=== PATIENT | male | born 1980 | race Caucasian/White ===

== ENCOUNTER 2017-06-21 18:02 | Emergency (ER) | payer MEDICAID ==
[2017-06-21 18:32] VITALS: RESP 18; TEMP 98.1
--- NOTE | 2017-06-21 19:28 | EDPHY ---
H & P Stated Complaint: Pleuritic type R sided CP~1mo; worse today after cough;recent URI Time Seen by Provider: 06/21/17 19:28 - Personal History Current Tetanus Diphtheria and Acellular Pertussis (TDAP): Yes Tetanus Vaccine Date: <10YRS - Medical/Surgical History Hx Asthma: No Hx Chronic Respiratory Disease: No Hx Diabetes: No Hx Cardiac Disease: No Hx Renal Disease: No Hx Cirrhosis: No Hx Alcoholism: No Hx HIV/AIDS: No Hx Splenectomy or Spleen Trauma: No Other PMH: denies - Social History Smoking Status: Current every day smoker Constitutional: Initial Vital Signs Temperature (C) 36.7 C 06/21/17 18:20 Heart Rate 94 06/21/17 18:20 Respiratory Rate 18 06/21/17 18:20 Blood Pressure 108/72 06/21/17 18:20 O2 Sat (%) 95 06/21/17 18:20 O2 Delivery Mode Room Air Allergies/Adverse Reactions: No Known Allergies Allergy (Verified 06/21/17 18:29) Home Medications: Medication Instructions Recorded Ibuprofen [Motrin] 800 mg PO Q8 #20 tab 06/21/17 oxyCODONE IR [Oxycodone Ir (*)] 5 - 10 mg PO Q6 PRN #20 tab 06/21/17 Medical Decision Making - Diagnostics Imaging Results: Imaging Impressions Chest X-Ray 06/21/17 18:33 Impression: Findings consistent with airways disease are noted. Imaging: I viewed and interpreted images myself ED Course/Re-evaluation: CHIEF COMPLAINT: Rib pain HISTORY OF PRESENT ILLNESS: The patient is a 37 y/o male complaining of rib pain that began acutely after a coughing fit today. He has been coughing frequently over the last few days and was diagnosed with a URI. After a heavy coughing fit today, he felt a "pop" along his right lower anterior ribs and felt sudden pain at the site. He now has pain with inhalation and is splinting each breath. He denies fever, nausea, diaphoresis, lightheadedness, palpitations , vomiting, abdominal pain, or other symptoms. No cardiac disease history. REVIEW OF SYSTEMS: A 10 point review of systems was performed and is negative with the exception of the elements mentioned in the history of present illness. PHYSICAL EXAM: HR, BP, O2 Sat, RR. Temp noted General Appearance: Alert, well hydrated, appropriate, and non-toxic appearing. Appears uncomfortable. Head: Atraumatic without scalp tenderness or obvious injury Eyes: Pupils equal, round, reactive to light and accommodation, EOMI, no trauma , no injection. Throat: Mucus membranes moist. Neck: Supple Respiratory: No retractions, no distress, no wheezes, and no accessory muscle use. Lungs are clear to auscultation bilaterally. Cardiovascular: Regular rate and rhythm, no murmurs, rubs, or gallops. Good capillary refill all extremities. Gastrointestinal: Abdomen is soft, nontender, non-distended, no masses, no rebound, no guarding, no peritoneal signs. Musculoskeletal: Normal active ROM of all extremities, atraumatic. Tenderness over right anterior lower ribs. No crepitus or deformity. Neurological: Alert, appropriate, and interactive. The patient has non-focal cranial nerves, motor, sensory, and cerebellar exam. Skin: No rashes, good turgor, no nodules on palpation. Past medical history: Denies Past surgical history: Denies Family history: Noncontributory Social history: Smoker, single, lives in [place] DIAGNOSTICS/PROCEDURES/CRITICAL CARE TIME: Chest x-ray: no fracture or pneumothorax DIFFERENTIAL DIAGNOSIS: The differential diagnosis for the patient's pain included but was not limited to rib fracture, rib contusion, costal dislocation , costal cartilage injury or inflammation, ligamentous injury, contusion, muscular strain. MEDICAL DECISION MAKING: This is a normally healthy 37 y/o male who is currently recovering from a URI and presents after sudden right anterior lower rib pain secondary to a coughing fit. He has point tenderness at this location. Lungs are clear to auscultation. I do not suspect cardiac or pulmonary cause for his pain as this is consistent with localized rib trauma from coughing. Though his chest x-ray is negative for fracture, it's possible he has a hairline fracture or rib contusion. Plan to treat with pain medication, NSAIDs, and follow up as needed. He is comfortable with this plan. Return precautions discussed. - Data Points Medications Given: Discontinued Medications Ibuprofen (Motrin) 800 mg PO EDNOW ONE Stop: 06/21/17 19:47 Last Admin: 06/21/17 19:53 Dose: 800 mg Oxycodone/Acetaminophen (Percocet 5/325mg Prepack#4) 1 btl TAKEKYLIEE JOLYNNNOW ONE Stop: 06/21/17 19:47 Last Admin: 06/21/17 19:54 Dose: 1 btl Departure - Departure Disposition: Home, Routine, Self-Care Clinical Impression: Rib fracture Qualifiers: Encounter type: initial encounter Rib fracture type: single rib Fracture type: closed Laterality: right Qualified Code(s): S22.31XA - Fracture of one rib, right side, initial encounter for closed fracture Condition: Good Instructions: Rib Fracture (ED), Rib Contusion (ED) Additional Instructions: 1. Take 800mg ibuprofen every 6-8 hours for the next few days. 2. You can try applying ice or heating pad to sore areas if helpful for your pain. 3. Take OxyIR as prescribed as needed for severe pain. This medication will make you drowsy. Do not drive while using it. 4. Follow up with a primary care provider in the next 1-2 weeks to establish care and for follow up on your symptoms. 5. Return to the ED for worsening of condition. Referrals: [facility],. [Clinic] - As per Instructions Prescriptions: Ibuprofen [Motrin] 800 mg PO Q8 #20 tab oxyCODONE IR [Oxycodone Ir (*)] 5 - 10 mg PO Q6 PRN #20 tab PRN Reason: Pain, Severe Report Scribed for: Dewayne Ching Report Scribed by: Frances Hunter Date of Report: 06/21/17 Time of Report: 19:33
[2017-06-21] MEDS ORDERED: IBUPROFEN 800 MG TAB PO ONE (19:46)
[2017-06-21] MEDS ORDERED: OXYCODONE/APAP 5/325MG PREPACK#4 BTL TAKEHOME ONE (19:46)
[2017-06-21 19:57] VITALS: BP 107/64; PULSE 72; O2SAT 94
== END 2017-06-21 20:03 | disposition home or self-care (01) ==
DX: R07.81 Pleurodynia (principal); F17.200 Nicotine dependence, unspecified, uncomplicated